=== PATIENT | female | born 1950 | race Caucasian/White ===

== ENCOUNTER → 2017-07-06 | Outpatient (CLI) | payer MEDICARE, OTHER ==
[~2017-07-06] MED LIST: ALEVE220 MG PO; PERCOCET 325 MG1 TA2 PO; VENTOLIN0.09 MG IH
== END ==
LOC: MC.RAD 11:24
DX: Z12.31 Encounter for screening mammogram for malignant neoplasm of breast (principal)

== ENCOUNTER 2019-09-11 07:21 | Emergency (ER) | payer MEDICARE, OTHER ==
[~2019-09-11] VITALS: Ht 157.5 cm; Wt 72.7 kg
[~2019-09-11 07:21] MED LIST changes: +CEPHALEXIN500 M1 PO
[2019-09-11] MEDS ORDERED: SINGULAIR 110 MG/TAB PO (07:43)
[2019-09-11 07:55] LABS: BASO # 0.1 (0.0-0.2); BASO % 0.7 % (0.0-2.0); EOS # 0.3 (0.0-0.7); EOS % 4.4 % (0-4.0); GRAN # 3.7 (1.4-6.5); GRAN % 54.4 % (42.2-75.2); HEMATOCRIT 41.3 % (37.0-47.0); HEMOGLOBIN 13.4 g/dl (12.5-16.0); LYMPH # 2.1 (1.2-3.4); LYMPH % 30.8 % (20.0-51.0); MEAN CELL VOLUME 94 fl (80.0-100.0); MEAN CORPUSCULAR HEMOGLOBIN 30 pg (27.0-31.0); MEAN CORPUSCULAR HGB CONC 32 g/dl (33.0-37.0); MEAN PLATELET VOLUME 10.4 fl (7.4-10.4); MONO # 0.7 (0.1-0.6); MONO % 9.6 % (1.7-9.3); PLATELET COUNT 266 K/mm3 (130-400); RED BLOOD COUNT 4.41 M/mm3 (4.10-5.30); REDCELL DISTRIBUTION WIDTH-CV 13.2 % (11.5-14.5)
[2019-09-11 08:04] LABS: ALANINE AMINOTRANSFERASE 22 U/L (9-52); ALBUMIN 4.2 gm/dL (3.5-5.0); ALKALINE PHOSPHATASE 102 U/L (50-136); ANION GAP 9 mmol/L (7-16); AST,SGOT 34 U/L (15-37); BILIRUBIN,TOTAL 0.4 mg/dL (0.0-1.0); BLOOD UREA NITROGEN 16 mg/dL (7-17); CALCIUM 9.2 mg/dL (8.4-10.2); CARBON DIOXIDE 25 mmol/L (22-30); CHLORIDE 109 mmol/L (98-107); CREATININE, serum 0.84 (0.52-1.25); GLUCOSE 95 mg/dL (74-106); LIPASE 118 U/L (23-300); POTASSIUM 3.8 mmol/L (3.4-5.0); SODIUM 143 mmol/L (137-145); TOTAL PROTEIN 7.4 gm/dL (6.4-8.2)
[2019-09-11 08:35] LABS: TROPONIN-I < 0.012 ng/mL (0.000-0.035)
[2019-09-11] MEDS ORDERED: PREDNISONE20 MG PO (10:37)
[2019-09-11 11:20] VITALS: BP 146/67; PULSE 67; TEMP 97.5
== END 2019-09-11 11:20 | disposition home or self-care (01) ==
LOC: COL.ER 07:21
PROVIDERS: Emergency Medicine
DX: R07.89 Other chest pain (principal); Z90.89 Acquired absence of other organs; Z90.49 Acquired absence of other specified parts of digestive tract; Z90.710 Acquired absence of both cervix and uterus
CPT/HCPCS: J1885; J7030; J7512

== ENCOUNTER → 2019-10-15 | Outpatient (CLI) | payer MEDICARE, OTHER ==
[~2019-10-15] MED LIST changes: +PREDNISONE20 MG PO; +SINGULAIR 110 MG/TAB PO
== END ==
LOC: COL.PUL 09-11 10:00
DX: J45.991 Cough variant asthma (principal)

== ENCOUNTER → 2019-11-12 | Outpatient (CLI) | payer MEDICARE, OTHER | LOC: COL.PUL 10-29 10:00 | DX: J45.991 Cough variant asthma (principal) | CPT/HCPCS: J7674 ==

== ENCOUNTER → 2020-06-24 | Outpatient (CLI) | payer MEDICARE, OTHER | LOC: MC.RAD 06-15 16:45 | DX: Z12.31 Encounter for screening mammogram for malignant neoplasm of breast (principal) ==

== ENCOUNTER 2020-12-27 08:58 | Day surgery (SDC) | payer MEDICARE, OTHER ==
[2020-12-27] VITALS (10 sets, daily range): BP systolic 120–1115; BP diastolic 49–72; PULSE 59–65; TEMP 98
[~2020-12-27] VITALS: Ht 157.5 cm; Wt 71.5 kg
[2020-12-27 10:00] LABS: HEMATOCRIT 42.4 % (37.0-47.0); HEMOGLOBIN 13.7 g/dl (12.5-16.0); MEAN CELL VOLUME 96 fl (80.0-100.0); MEAN CORPUSCULAR HEMOGLOBIN 31 pg (27.0-31.0); MEAN CORPUSCULAR HGB CONC 32 g/dl (33.0-37.0); MEAN PLATELET VOLUME 10.7 fl (7.4-10.4); PLATELET COUNT 263 K/mm3 (130-400); RED BLOOD COUNT 4.44 M/mm3 (4.10-5.30); REDCELL DISTRIBUTION WIDTH-CV 13.2 % (11.5-14.5)
[2020-12-27 10:11] LABS: CALCIUM 9.6 mg/dL (8.4-10.2); CREATININE, serum 0.92 (0.52-1.25); POTASSIUM 4.1 mmol/L (3.4-5.0)
[2020-12-27 10:13] LABS: PROTHROMBIN TIME 11.6 SECONDS (9.7-12.8)
[2020-12-27 10:15] LABS: PARTIAL THROMBOPLASTIN TIME 32.2 SECONDS (26.0-37.0)
[2020-12-27] MEDS ORDERED: PRINIVIL10 MG PO (10:16)
[2020-12-27] MEDS ORDERED: PRINIVIL5 MG PO (10:17)
--- NOTE | 2020-12-27 12:15 | NUR ---
Report from Johanna PAZ. Transferred from labor delivery specialist by bed. Denies pain and needs at this time. Right Tband with 9 cc air CD&I, good pulses and < 3 sec cap refill. VSS. Daughter bedside
[2020-12-27] MEDS ORDERED: TIAZAC120 MG PO (14:45)
[2020-12-27] MEDS ORDERED: LIPITOR20 MG PO (14:45)
--- NOTE | 2020-12-27 15:10 | NUR ---
9 cc air released from right Tband and dressing applied. INT discontinued intact. Ambulated to restroom with steady gait. Discharge instructions given. Transferred to private car by luis m
== END 2020-12-27 15:20 | disposition home or self-care (01) ==
LOC: COL.CAR 08:58
PROVIDERS: Internal Medicine Cardiovascular Disease
DX: R94.39 Abnormal result of other cardiovascular function study (principal); R07.9 Chest pain, unspecified; I10 Essential (primary) hypertension; I44.30 Unspecified atrioventricular block; Z95.0 Presence of cardiac pacemaker; Z88.5 Allergy status to narcotic agent; Z88.2 Allergy status to sulfonamides; Z20.822 Contact with and (suspected) exposure to COVID-19
CPT/HCPCS: C1769; J1644; J2250; J3010